=== PATIENT | female | born 1935 | race Asian ===

== ENCOUNTER → 2020-03-15 | Outpatient (CLI) | payer MEDICARE ==
[~2020-03-15] MED LIST: ACET500T64 PO; AMLO-150 PO; ATOR40TA78 PO; CARV12.5 PO; IPRA3AMP30 INH; LOSA100T2 PO; LOSA1TAB25 PO
== END | disposition home or self-care (01) ==
LOC: PETCFH 08:22
PROVIDERS: ATTEND Internal Medicine
DX: C18.0 Malignant neoplasm of cecum (principal); J92.9 Pleural plaque without asbestos; J98.4 Other disorders of lung; R19.00 Intra-abdominal and pelvic swelling, mass and lump, unspecified site; R91.8 Other nonspecific abnormal finding of lung field; Z90.710 Acquired absence of both cervix and uterus
CPT/HCPCS: 78815; A9552